=== PATIENT | female | born 1935 | race Caucasian/White ===

== ENCOUNTER → 2018-03-25 12:48 | Outpatient (CLI) | payer MEDICARE | END | disposition home or self-care (01) | LOC: D.RAD 12:48 | DX: R13.10 Dysphagia, unspecified (principal) ==

== ENCOUNTER 2018-07-15 11:42 | Day surgery (SDC) | payer MEDICARE ==
[~2018-07-15] VITALS: Ht 157.5 cm; Wt 59.1 kg
--- NOTE | ~2018-07-15 | OP ---
PATIENT NAME: SERGE SANTANA MEDICAL RECORD: [id number] :35 LOC[facility] ADMISSION DATE: SURGEON: IGOR DEGROOT MD DATE OF OPERATION: 07/15/2018 PROCEDURE: EGD with biopsy. REFERRING PHYSICIAN: Dr. Russ Snyder. ONCOLOGIST: Dr. Han. INDICATIONS: Ms. Santana is a pleasant 82-year-old woman with a history of lung cancer initially diagnosed in 2005, status post partial lobectomy and chemotherapy; she was in remission until 2016 and now is being treated with oral chemotherapy (Gilotrif 20 mg). She has had symptoms of what she describes as a tickle in the right side of her throat. She has no problem swallowing food or liquids. She does have symptoms of heartburn for which she takes omeprazole 40 mg daily with moderate relief. She had a video fluoroscopic swallowing study 03/25/2018 with finding showing mild pharyngeal dysphagia; her oral preparatory and oral transit stage of the swallow are functional for all sizes and consistencies of food and liquid given for the pharyngeal stage of the swallow; she has some decreased strength at the base of her tongue and it was noted that she had an epiglottis that curled at its tip; it was recommended that she continue with the solid diet with thin liquids. She presents for outpatient EGD. PREMEDICATIONS: Total IV anesthesia (propofol 180 mg, history of lung cancer and advanced age). INSTRUMENT: Olympus video, Olympus GIF-H190 gastroscope. PROCEDURE AND FINDINGS: After receiving informed consent, Ms. Santana's posterior pharynx was anesthetized with Cetacaine spray. She was placed in left lateral decubitus position and sedated as per anesthesia. After achieving an adequate level of sedation, the gastroscope was introduced per orally and advanced into the duodenum without difficulty. The esophageal mucosa was without erythema or ulcers. However, her esophagus was somewhat tortuous in nature. The GE junction was located approximately 34 cm, a moderate size hiatal hernia is present. Gastric mucosa was notable for streaks of erythema in the antrum and antral biopsies were obtained to rule out Helicobacter pylori. No lesions were seen along the incisura, the cardia, fundus or in the body of the stomach. Pylorus was patent and competent. Duodenal mucosa was without erythema or ulcers, appeared normal to the second portion. As the scope was withdrawn, biopsies were taken from the distal third of the esophagus. Ms. Santana tolerated procedure well, no immediate complications. ASSESSMENT: 1. Tortuous esophagus. 2. Moderate size hiatal hernia. 3. Mild gastritis. RECOMMENDATIONS: 1. Follow up histopathology. 2. Limit use of nonsteroidal anti-inflammatory drugs. 3. Consider CT scan of the neck to evaluate soft tissue structures as she has OPERATIVE REPORT [id number] SERGE SANTANA symptoms of "a tickle" on the right side of her neck. 4. Continue omeprazole 40 mg daily, may increase to b.i.d. as needed. TRANSINT:[id number] Voice Confirmation ID: [id number] DOCUMENT ID: [id number] CC: Dr. Russ Snyder IGOR DEGROOT MD at 1541 CC: DR ANNMARIE SNYDER and NILDA SURESH MD [id number] DICTATION DATE: 07/15/18 1524 TACK PULLER MACHINE: 07/15/18 1706 [facility] 07/15/18 [id number] [place] [address]
[2018-07-15 12:02] LABS: BASOPHILS 0.4 % (0-2); EOSINOPHILS 1.9 % (0-7); HEMATOCRIT 38.1 % (36.0-48.0); HEMOGLOBIN 12.9 g/dL (12-16); IMMATURE GRANULOCYTES 0.2 % (0-5); LYMPHOCYTES 36.5 % (15-50); MCH 29.7 pg (26.0-34.0); MCHC 33.9 g/dL (31.0-37.0); MCV 87.8 fL (80.0-100.0); MONOCYTES 5.6 % (2-11); NEUTROPHILS 55.4 % (40-80); PLATELET COUNT 246 10x3/uL (130-400); RBC 4.34 10x6/uL (4.00-5.40); RDW 14.1 % (11.5-14.5); WBC 9.2 10x3/uL (4.8-10.8)
[2018-07-15] MEDS ORDERED: NEO-POLY-DEXAM3.5 GM LEFT EYE ×3 (12:28→12:32)
[2018-07-15] MEDS ORDERED: ACULAR LS5 ML RIGHT EAR (12:30)
[2018-07-15] MEDS ORDERED: OMEPRAZOLE40 MG PO (12:35)
[2018-07-15] MEDS ORDERED: ACETAMINOPHEN325 MG (12:36)
[2018-07-15 13:08] VITALS: BP 129/60; Ht 157.5 cm; Wt 59.1 kg
== END 2018-07-15 16:35 | disposition home or self-care (01) ==
LOC: D.OPS 11:42
PROVIDERS: Internal Medicine Gastroenterology
DX: K22.4 Dyskinesia of esophagus (principal); K44.9 Diaphragmatic hernia without obstruction or gangrene; K29.50 Unspecified chronic gastritis without bleeding; Z85.118 Personal history of other malignant neoplasm of bronchus and lung; Z79.899 Other long term (current) drug therapy